=== PATIENT | male | born 1980 | race Two or more races ===

== ENCOUNTER 2017-04-27 11:50 | Emergency (ER) | payer SELFPAY ==
[~2017-04-27] VITALS: Ht 167.6 cm; Wt 77.1 kg
--- NOTE | 2017-04-27 12:00 | NUR ---
PRESENTS SELF TO ED FOR SOB WITH CP, ACHING, 5/10 X 2 DAYS. PATIENT ADMITTED COCCAINE AND ALCOHOL USE. APPEARS IN NO APPARENT DISTRESS, RESPIRATION EVEN AND UNLABORED. SKIN IS WARM TO TOUCH AND NON DIAPHORETIC. PT IS AFEBRILE. VSS
--- NOTE | 2017-04-27 12:09 | NUR ---
DR MAHAN AT BEDSIDE FOR EVAL.
--- NOTE | 2017-04-27 12:16 | NUR ---
EKG IN PROGRESS
[2017-04-27] MEDS ORDERED: ASPIRIN 325 MG TABLET ONE (12:19)
[2017-04-27] MEDS ORDERED: ASPIRIN 325 MG TABLET PO ONE (12:30)
--- NOTE | 2017-04-27 12:35 | NUR ---
BLOOD DRAWN. 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
[2017-04-27 12:55] LABS: BASOPHILS # (AUTO) 0.1 /CMM (0.0-0.2); BASOPHILS % (AUTO) 0.8 % (0.0-2.0); EOSINOPHILS # (AUTO) 0.1 /CMM (0.0-0.7); EOSINOPHILS % (AUTO) 0.8 % (0.0-6.0); HEMATOCRIT 50 % (39-51); HEMOGLOBIN 16.7 g/dL (13.5-17.5); LYMPHOCYTES # (AUTO) 2.7 /CMM (0.8-4.8); LYMPHOCYTES % (AUTO) 25.3 % (20.0-44.0); MEAN CORPUSCULAR HEMOGLOBIN 30 PG (26.0-33.0); MEAN CORPUSCULAR HGB CONC 34 g/dl (31.0-36.0); MEAN CORPUSCULAR VOLUME 90 fL (80-96); MONOCYTES # (AUTO) 0.8 /CMM (0.1-1.30); MONOCYTES % (AUTO) 7.3 % (2.0-12.0); NEUTROPHILS # (AUTO) 6.9 /CMM (1.8-8.9); NEUTROPHILS % (AUTO) 65.8 % (43.0-81.0); PLATELET COUNT (AUTO) 274 /CMM (150-450); RDW COEFFICIENT OF VARIATION 13.2 (11.5-15.0); RED BLOOD CELL COUNT(AUTO) 5.53 MIL/uL (4.5-6.0); WHITE BLOOD COUNT (AUTO) 10.5 K/uL (4.3-11.0)
[2017-04-27 13:03] LABS: CALCIUM, SERUM 9.4 mg/dL (8.5-10.1); CARBON DIOXIDE 30 mmol/L (21-32); CHLORIDE 101 mmol/L (98-107); CREATININE 1.2 mg/dL (0.6-1.3); GLUCOSE 96 mg/dL (74-106); POTASSIUM 4.1 mmol/L (3.5-5.1); SODIUM SERUM 140 mmol/L (136-145); UREA NITROGEN, BLOOD 10 mg/dL (7-18)
[2017-04-27 13:09] LABS: TROPONIN I < 0.017 ng/mL (0.00-0.056)
--- NOTE | 2017-04-27 13:38 | NUR ---
Patient discharged to home in stable condition. Written and verbal after care instructions given. Patient verbalizes understanding of instruction.
[2017-04-27 13:39] VITALS: BP 136/94
== END 2017-04-27 13:39 | disposition home or self-care (01) ==
LOC: ER 11:55
DX: F14.10 Cocaine abuse, uncomplicated (principal); R07.89 Other chest pain
CPT/HCPCS: 36415; 71010-TC; 80048-TC; 84484-TC; 85025-TC; A4606; Z7610